=== PATIENT | female | born 1965 | race Hispanic/Latino ===

== ENCOUNTER 2021-09-14 14:36 | Emergency (ER) | payer MEDICAID ==
--- NOTE | 2021-09-14 15:31 | XRay Report ---
Left knee-3 views INDICATION: knee pain. COMPARISON: None available. IMPRESSION: Lateral tibial fixation is intact without complication. No acute osseous abnormality. N ormal alignment. Advanced tricompartmental degenerative arthrosis. Small suprapatellar effusion. Signer Name: Luis Moe MD Signed: 09/14/2021 3:27 PM Workstation Name: [facility]
[2021-09-14] MEDS ORDERED: IBUPROFEN 800 MG TAB PO ONE (15:32)
--- NOTE | 2021-09-14 15:32 | Emergency Department Report ---
ED Lower Extremity HPI - General Chief Complaint: Extremity Injury, Lower Stated Complaint: LEFT KNEE PAIN Time Seen by Provider: 09/14/21 15:31 Source: patient, EMS Mode of arrival: Stretcher Limitations: Physical Limitation - History of Present Illness Initial Comments: Patient is a 55-year-old obese female that comes to the ER after a ground-level mechanical fall at home. She injured her left knee at the time. She has acute on chronic knee pain and is in pain management. She is requesting pain medications. I told her that we do not give narcotics. She then asked if she could have prescription dose Motrin and some Ultram. She is neurologically and neurovascularly intact. She denies any other injury. Fall was witnessed. She had no LOC. She is ambulatory in [facility] Complaint: knee injury -: Sudden Place: home Context: fall, direct blow - Related Data Previous Rx's Medication Instructions Recorded Last Taken Type Ibuprofen [Motrin] 800 mg PO Q8HR PRN #30 tablet 09/14/21 Unknown Rx traMADoL [Ultram] 50 mg PO Q6HR PRN #10 tablet 09/14/21 Unknown Rx Allergies Allergy/AdvReac Type Severity Reaction Status Date / Time cephalexin [From Keflex] Allergy Itching Verified 09/14/21 14:43 ED Review of Systems ROS: Stated complaint: LEFT KNEE PAIN Other details as noted in HPI Comment: All other systems reviewed and negative ED Past Medical Hx - Past Medical History Previous Medical History?: Yes - Surgical History Past Surgical History?: No - Family History Family history: no significant - Social History Smoking Status: Current Every Day Smoker Substance Use Type: Alcohol - Medications Home Medications: Home Medications Medication Instructions Recorded Confirmed Last Taken Type Ibuprofen [Motrin] 800 mg PO Q8HR PRN #30 tablet 09/14/21 Unknown Rx traMADoL [Ultram] 50 mg PO Q6HR PRN #10 tablet 09/14/21 Unknown Rx ED Physical Exam - General Limitations: No Limitations, Physical Limitation General appearance: alert, in no apparent distress - Head Head exam: Present: atraumatic, normocephalic - Eye Eye exam: Present: normal appearance - ENT ENT exam: Present: mucous membranes moist - Neck Neck exam: Present: normal inspection - Respiratory Respiratory exam: Present: normal lung sounds bilaterally. Absent: respiratory distress - Cardiovascular Cardiovascular Exam: Present: regular rate, normal rhythm. Absent: systolic murmur, diastolic murmur, rubs, gallop - GI/Abdominal GI/Abdominal exam: Present: soft, normal bowel sounds - Extremities Exam Extremities exam: Present: normal inspection - Back Exam Back exam: Present: normal inspection - Neurological Exam Neurological exam: Present: alert, oriented X3 - Psychiatric Psychiatric exam: Present: normal affect, normal mood - Skin Skin exam: Present: warm, dry, intact, normal color. Absent: rash ED Course Vital Signs 09/14/21 09/14/21 14:40 16:15 Temperature 98.5 F 98.8 F Pulse Rate 80 84 Respiratory 16 20 Rate Blood Pressure 182/92 135/87 [Left] O2 Sat by Pulse 99 100 Oximetry ED Lower Extremity MDM - Radiology Data Radiology results: report reviewed, image reviewed nap - Medical Decision Making X-ray noted. Patient has lateral left knee swelling and tenderness. She has been placed in a knee immobilizer and given crutches. She has been medicated for pain in the ER. Patient remains neurovascularly intact both before and after the immobilizer was replaced. Patient being discharged home with discharge plan of care including diet, activity, medications and follow-up. She verbalizes understanding of plan of care. Vital Signs 09/14/21 09/14/21 14:40 16:15 Temperature 98.5 F 98.8 F Pulse Rate 80 84 Respiratory 16 20 Rate Blood Pressure 182/92 135/87 [Left] O2 Sat by Pulse 99 100 Oximetry - Differential Diagnosis ro fx Critical care attestation.: If time is entered above; I have spent that time in minutes in the direct care of this critically ill patient, excluding procedure time. ED Disposition Clinical Impression: Fall Qualifiers: Encounter type: initial encounter Qualified Code(s): W19.XXXA - Unspecified fall, initial encounter Knee pain Qualifiers: Chronicity: acute Laterality: left Qualified Code(s): M25.562 - Pain in left knee Disposition: 01 HOME / SELF CARE / HOMELESS Is pt being admited?: No Does the pt Need Aspirin: No Condition: Stable Instructions: Joint Pain Additional Instructions: Medications as ordered today. Rest ice and elevate your leg Use crutches for the next 48 hours. You should not use this or the immobilizer for prolonged period of time because it can cause secondary injury. Therefore you have been referred to orthopedics have given you referral below. Prescriptions: Ibuprofen [Motrin] 800 mg PO Q8HR PRN #30 tablet PRN Reason: Pain, Moderate (4-6) traMADoL [Ultram] 50 mg PO Q6HR PRN #10 tablet PRN Reason: Pain Referrals: RADHA HUGGINS MD [Staff Physician] - 3-5 Days GARY CROWDER MD [Staff Physician] - 3-5 Days Time of Disposition: 15:32
[2021-09-14 16:18] VITALS: BP 135/87
== END 2021-09-14 16:41 | disposition home or self-care (01) ==
LOC: ED 14:36
DX: M25.562 Pain in left knee (principal); W19.XXXA Unspecified fall, initial encounter; Y93.89 Activity, other specified; Y92.89 Other specified places as the place of occurrence of the external cause; Y99.8 Other external cause status; F17.290 Nicotine dependence, other tobacco product, uncomplicated; Z88.1 Allergy status to other antibiotic agents
CPT/HCPCS: 99283